=== PATIENT | female | born 1950 | race Caucasian/White ===

== ENCOUNTER → 2017-02-10 | Outpatient (CLI) | payer BC, OTHER ==
[~2017-02-10] MED LIST: ACET500C6 PO; ASPEC325 PO; CALC600T9 PO; CRS10 PO; FLV400 PO; FRRG PO; GLUC1TAB22 PO; IBUP-1428 PO; LPR25 PO; METH-1117 PO; MULT-506 PO; MULT-839 PO; OMEG10002 PO; VITAMIN B12 PO
== END | disposition home or self-care (01) ==
LOC: C.LABSPEC 17:18
PROVIDERS: ATTEND Urology
DX: N39.0 Urinary tract infection, site not specified (principal)

== ENCOUNTER 2019-06-27 09:43 | Inpatient (IN) ==
--- NOTE | 2019-06-09 15:02 | PAT Medication Instructions ---
Medication Instructions Date of Service June 09, 2019 Home Medications ascorbic acid (vitamin C) [Vitamin C] 1 g PO DAILY aspirin [Aspir-81] 81 mg PO HS calcium carbonate-vitamin D3 [Calcium 600 + D(3)] 600 cap PO DAILY cholecalciferol (vitamin D3) [Vitamin D3] 2,000 unit PO DAILY cyanocobalamin (vitamin B-12) [Vitamin B-12] 2,500 mcg SUBLINGUAL DAILY metoprolol tartrate 12.5 mg PO QAM multivitamin 1 cap PO DAILY omega 9-hfh-ije-fish oil [Fish Oil] 1 cap PO DAILY rosuvastatin [Crestor] 20 mg PO HS vit A,C and J-mwgnrx-bgrnvgol [Vision Formula (with lutein)] 1 tab PO QAM STOP taking 2 weeks before surgery (or as soon as possible if surgery is within 2 weeks) omega 6-ebc-rqe-fish oil [Fish Oil] 1 cap PO DAILY vit A,C and Z-jatbwf-aezxxblx [Vision Formula (with lutein)] 1 tab PO QAM DO NOT take the morning of surgery ascorbic acid (vitamin C) [Vitamin C] 1 g PO DAILY calcium carbonate-vitamin D3 [Calcium 600 + D(3)] 600 cap PO DAILY cholecalciferol (vitamin D3) [Vitamin D3] 2,000 unit PO DAILY cyanocobalamin (vitamin B-12) [Vitamin B-12] 2,500 mcg SUBLINGUAL DAILY multivitamin 1 cap PO DAILY Take morning of surgery With a small sip of water, OTHERWISE NOTHING TO EAT OR DRINK AFTER MIDNIGHT: metoprolol tartrate 12.5 mg PO QAM Take evening before surgery aspirin [Aspir-81] 81 mg PO HS rosuvastatin [Crestor] 20 mg PO HS Other Notes If you have any questions please call us at [phone] or [phone] or [phone] or [phone]
--- NOTE | 2019-06-12 12:26 | Anesthesiology Consultation ---
Date of Service June 12, 2019 Assessment & Plan Chart Review Chart Review: Pending: Refer to Additional Notes / Consult section (Awaiting lab results and pending cxr for final clearance, otherwise ok to proceed) History Surgery Operation Date: 06/27/19 07:00 Proposed Procedures p Left Total Knee Arthroplasty - Angel Cole MD Height/Weight Height: 5 ft 6.5 in Weight: 82.7 kg Allergies Allergy/AdvReac Type Severity Reaction Status Date / Time No Known Drug Allergies Allergy Unknown NONE Verified 05/30/19 11:45 Medications Home Medications Medication Instructions Recorded Confirmed Last Taken ascorbic acid (vitamin C) [Vitamin 1 g PO DAILY 05/30/19 05/30/19 Unknown C] aspirin [Aspir-81] 81 mg PO HS 05/30/19 05/30/19 Unknown calcium carbonate-vitamin D3 600 cap PO DAILY 05/30/19 05/30/19 Unknown [Calcium 600 + D(3)] cholecalciferol (vitamin D3) 2,000 unit PO DAILY 05/30/19 05/30/19 Unknown [Vitamin D3] cyanocobalamin (vitamin B-12) 2,500 mcg SUBLINGUAL DAILY 05/30/19 05/30/19 Unknown [Vitamin B-12] metoprolol tartrate 12.5 mg PO QAM 05/30/19 05/30/19 Unknown multivitamin 1 cap PO DAILY 05/30/19 05/30/19 Unknown omega 5-zpq-vid-fish oil [Fish Oil] 1 cap PO DAILY 05/30/19 05/30/19 Unknown rosuvastatin [Crestor] 20 mg PO HS 05/30/19 05/30/19 Unknown vit A,C and X-apatab-zqdmeaqs 1 tab PO QAM 05/30/19 05/30/19 Unknown [Vision Formula (with lutein)] Past Medical History Medical History Costochondritis HX OF History of skin cancer & RESECTED Hyperlipidemia Hypertension Left knee DJD Osteoarthritis Past Surgical History Surgical History History of cardiac cath X2 - ? DATES ([place]) - NO HX STENTS MOST RECENT 3-4 YR AGO - SOB , FATIGUE - NO FINDINGS History of colonoscopy History of mandibular surgery 1992 - NO LIMITED ROM History of tonsillectomy and adenoidectomy History of total right knee replacement Social History Smoking Status: Never smoker Do You Dip or Chew Tobacco: No Hx Alcohol Use: Yes Alcohol type: wine alcohol intake frequency: a few times a month Hx Substance Use: No substance use type: does not use Physical Exam Vital Signs Last Vital Signs Temp 36.6 C 06/12/19 12:04 Pulse 54 L 06/12/19 12:04 Resp 18 06/12/19 12:04 BP 162/80 H 06/12/19 12:04 Pulse Ox 97 06/12/19 12:04 Testing Electrocardiogram Date: 06/12/19 Findings: + SB @ (44)
--- NOTE | 2019-06-12 12:51 | XRay Report ---
XR chest Pre-admission PA/Lat CLINICAL HISTORY: Preoperative evaluation. COMPARISON STUDY: Chest radiograph January 31, 2014. FINDINGS: Lung volumes are normal. Lungs are clear. There is no pneumothorax or pleural effusion. Car diac size is at the upper limits of normal. Mediastinal contours are normal. There is no evidence for pulmonary edema. IMPRESSION: No acute cardiopulmonary findings. ACT 112: Negative or not required by law. Electronically signed by: Marcellus Ramos M.D. 06/12/2019 12:50 PM
[2019-06-12 13:13] LABS: Basophils # (auto) 0.07 K/uL (0-0.2); Basophils % (auto) 1.1 %; Eosinophils # (auto) 0.34 K/uL (0-0.5); Eosinophils % (auto) 5.5 %; Hematocrit (blood only) 37.6 % (37-47); Hemoglobin 12.2 g/dL (12.0-16.0); Immature Granulocytes # (auto) 0.01 K/uL (0.00-0.02); Immature Granulocytes % (auto) 0.2 %; Lymphocytes # (auto) 2.25 K/uL (1.2-3.4); Lymphocytes % (auto) 36.5 %; Mean Corpuscular Hemoglobin 30.8 pg (25-34); Mean Corpuscular Hgb Conc 32.4 g/dL (32-36); Mean Corpuscular Volume 94.9 fL (80-100); Mean Platelet Volume 10.5 fL (7.4-10.4); Neutrophils % (auto) 43.7 %; Platelet Count 300 K/uL (130-400); RDW Coefficient of Variation 13.7 % (11.5-14.5); RDW Standard Deviation 47.2 fL (36.4-46.3); Red Blood Count 3.96 M/uL (4.2-5.4); White Blood Count 6.17 K/uL (4.8-10.8)
[2019-06-12 13:20] LABS: BUN Creatinine Ratio 16.6 (10-20); Blood Urea Nitrogen 15 mg/dl (7-18); C Reactive Protein < 0.29 mg/dl (0-0.29); Calcium 9.5 mg/dl (8.5-10.1); Carbon Dioxide 30 mmol/L (21-32); Chloride 105 mmol/L (98-107); Creatinine Clr Calc Pharmacy 66.4 ml/min; Est GFR (African American) 76.7; Est GFR (Non-African American) 66.2; Glucose 87 mg/dl (70-99); Sodium 138 mmol/L (136-145)
[2019-06-12 13:30] LABS: INR 1.1 (0.9-1.1); Partial Thromboplastin Ratio 0.9; Partial Thromboplastin Time 25.7 Seconds (21.0-31.0); Prothrombin Time 10.8 Seconds (9.0-12.0)
--- NOTE | 2019-06-13 05:59 | Electrocardiogram Report ---
Test Reason : Blood Pressure : / mmHG Vent. Rate : 044 BPM Atrial Rate : 044 BPM P-R Int : 146 ms QRS Dur : 104 ms QT Int : 464 ms P-R-T Axes : 053 -07 041 degrees QTc Int : 396 ms Marked sinus bradycardia Abnormal ECG When compared with ECG of 31-JAN-2014 12:17, No significant change was found Confirmed by Richard Blunt ([id number]) on 06/13/2019 5:59:37 AM Referred By: Angel Cole Confirmed By:Richard Blunt
--- NOTE | 2019-06-13 10:30 | Anesthesiology Consultation ---
Date of Service June 13, 2019 Assessment & Plan (1) Encounter for pre-operative examination: Chart Review Chart Review: Acceptable Risk for Surgery Consults Requested none History Surgery Operation Date: 06/27/19 07:00 Proposed Procedures p Left Total Knee Arthroplasty - Angel Cole MD Height/Weight Height: 5 ft 6.5 in Weight: 82.7 kg Allergies Allergy/AdvReac Type Severity Reaction Status Date / Time No Known Drug Allergies Allergy Unknown NONE Verified 05/30/19 11:45 Medications Home Medications Medication Instructions Recorded Confirmed Last Taken ascorbic acid (vitamin C) [Vitamin 1 g PO DAILY 05/30/19 05/30/19 Unknown C] aspirin [Aspir-81] 81 mg PO HS 05/30/19 05/30/19 Unknown calcium carbonate-vitamin D3 600 cap PO DAILY 05/30/19 05/30/19 Unknown [Calcium 600 + D(3)] cholecalciferol (vitamin D3) 2,000 unit PO DAILY 05/30/19 05/30/19 Unknown [Vitamin D3] cyanocobalamin (vitamin B-12) 2,500 mcg SUBLINGUAL DAILY 05/30/19 05/30/19 Unknown [Vitamin B-12] metoprolol tartrate 12.5 mg PO QAM 05/30/19 05/30/19 Unknown multivitamin 1 cap PO DAILY 05/30/19 05/30/19 Unknown omega 1-zqq-auk-fish oil [Fish Oil] 1 cap PO DAILY 05/30/19 05/30/19 Unknown rosuvastatin [Crestor] 20 mg PO HS 05/30/19 05/30/19 Unknown vit A,C and Y-kbzeko-vxdjccix 1 tab PO QAM 05/30/19 05/30/19 Unknown [Vision Formula (with lutein)] Past Medical History Medical History Costochondritis HX OF History of skin cancer & RESECTED Hyperlipidemia Hypertension Left knee DJD Osteoarthritis Past Surgical History Surgical History History of cardiac cath X2 - ? DATES ([place]) - NO HX STENTS MOST RECENT 3-4 YR AGO - SOB , FATIGUE - NO FINDINGS History of colonoscopy History of mandibular surgery 1992 - NO LIMITED ROM History of tonsillectomy and adenoidectomy History of total right knee replacement Social History Smoking Status: Never smoker Do You Dip or Chew Tobacco: No Hx Alcohol Use: Yes Alcohol type: wine alcohol intake frequency: a few times a month Hx Substance Use: No substance use type: does not use Physical Exam Vital Signs Last Vital Signs Temp 36.6 C 06/12/19 12:04 Pulse 54 L 06/12/19 12:04 Resp 18 06/12/19 12:04 BP 162/80 H 06/12/19 12:04 Pulse Ox 97 06/12/19 12:04 Testing Laboratory Results 06/12/19 12:05 06/12/19 12:05 PT 10.8 Seconds (9.0-12.0) 06/12/19 12:05 INR 1.1 (0.9-1.1) 06/12/19 12:05 APTT 25.7 Seconds (21.0-31.0) 06/12/19 12:05 Blood Type A Positive 06/12/19 12:05 Antibody Screen NEGATIVE 06/12/19 12:05 Electrocardiogram Date: 06/12/19 Findings: + SB @ (44/min) Chest X-Ray Date: 06/12/19 Findings: + NAD
--- NOTE | 2019-06-23 19:11 | History and Physical Report ---
DATE OF ADMISSION: 06/27/2019 CHIEF COMPLAINT: Left knee pain and discomfort. HISTORY OF PRESENT ILLNESS: The patient is a 68-year-old female who is well known to me from previous right knee replacement we did back in 2013. Even back then she was having left knee pain, but just not as bad. She continues to be limited by left knee pain and discomfort. It has gradually gotten worse over the past several years. She has been through extensive conservative treatment including injections and medicines and she is ready to proceed with surgery. She does not want any more conservative care. Her knee is painful and unstable. It gives out intermittently. The more she walks, the more it hurts. She has nighttime pain. PAST MEDICAL HISTORY: 1. Hypertension. 2. Elevated cholesterol. PAST SURGICAL HISTORY: 1. Jaw surgery. 2. Right total knee replacement done 03/14/2014. ALLERGIES: None. CURRENT MEDICINES: 1. Crestor 20 mg a day. 2. Metoprolol 25 mg. 3. Calcium with D. 4. Vitamin B12. 5. Fish oil. 6. Vision formula. 7. Baby aspirin. 8. Vitamin C. 9. Vitamin D3. 10. Multivitamin. SOCIAL HISTORY: 68-year-old female. She lives in [place]. Does not smoke. FAMILY HISTORY: Noncontributory. REVIEW OF HISTORY: Negative for diabetes, neurologic problems, vascular problems or bleeding disorders. Denies any chest pain or shortness of breath. No signs of DVT or PE. No known bleeding problems. PHYSICAL EXAMINATION: GENERAL: Shows a pleasant, middle-aged female, looks to be in good health. HEENT: Benign. NECK: Supple with no lymphadenopathy. LUNGS: Clear to auscultation. HEART: Has regular rate and rhythm. ABDOMEN: Soft, nontender, nondistended. EXTREMITIES: Grossly neurovascularly intact except as follows: Examination of left knee reveals patient walks with a slightly antalgic gait. She has valgus alignment to her knee which is worse with weightbearing. She had a small knee effusion. She is tender over the lateral joint line. Range of motion is 5 degrees short of full extension to 120 degrees of flexion. No instability. No pain with hip motion. Examination of the right knee reveals a well-healed incision. No swelling. She has anatomic alignment. Range of motion is 0-125. Good straight leg raise. X-RAYS: X-rays of the left knee were reviewed. Shows advanced left knee lateral compartment DJD. She has complete loss of her lateral joint space. She has subchondral sclerosis and osteophytes in the lateral compartment. She has diffuse osteopenia elsewhere. The right knee looks to be well fixed in good position without signs of wear. ASSESSMENT: 68-year-old white female 5+ years out from right knee replacement with left knee degenerative joint disease. She has failed conservative treatment and would like to proceed with left knee replacement. PLAN: We will take her to the operating room and do a left total knee replacement. The risks and benefits of this procedure were explained to the patient including but not limited to DVT, PE, , infection, neurological injury, vascular injury, bleeding problem, pain, limited range of motion, stiffness, failure to relieve symptoms, incomplete relief of symptoms, need for further surgery in future, fracture, leg length inequality, nerve palsy, etc. The patient understands and desires to proceed. Informed consent was obtained. We did talk to her about taking her metoprolol the morning of surgery. She will be able to be discharged to home with some home health.
[~2019-06-27 09:43] MED LIST changes: -ACET500C6 PO; +ACETAMINOPHEN 500 MG TAB PO SCH; -ASPEC325 PO; +BUPIVACAINE LIPOSOME/PF 266 MG, BUPIVACAINE/EPINEPHRINE 50 ML, SODIUM CHLORIDE 0.9% 30 ... INFIL SCH; -CALC600T9 PO; +CEFAZOLIN 2000MG 2,000 MG/15 ML SYR IV SCH; -CRS10 PO; +FAMOTIDINE 20 MG TAB PO SCH; -FLV400 PO; -FRRG PO; +GABAPENTIN 300 MG CAP PO SCH; -GLUC1TAB22 PO; -IBUP-1428 PO; -LPR25 PO; +LR 500ML BOLUS IV SCH; +LR 60ML/HR IV SCH; -METH-1117 PO; +METOCLOPRAMIDE HCL 10 MG TABLET PO SCH; -MULT-506 PO; -MULT-839 PO; -OMEG10002 PO; +TRANEXAMIC ACID 1,000 MG **IV Intra-op IV SCH; -VITAMIN B12 PO
--- NOTE | 2019-06-27 10:55 | History & Physical Bridge Note ---
Date of Service June 27, 2019 History & Physical Bridge Note I have examined the patient, reviewed the History & Physical and in the interval since the performance of the History & Physical I have noted the following changes of clinical significance: no changes noted
[2019-06-27] MEDS ORDERED: BUPIVACAINE 0.5 % 5 MG/1 ML PF 10ML VIAL ONE (11:01)
[2019-06-27] MEDS ORDERED: fentaNYL citrate 100 MCG/2 ML VIAL ONE (11:39)
[2019-06-27] MEDS ORDERED: MIDAZOLAM HCL 1 MG/ML 2ML VIAL ONE ×2 (11:39→14:51)
[2019-06-27] MEDS ORDERED: fentaNYL citrate 100 MCG/2 ML VIAL IV PRN (11:43)
[2019-06-27] MEDS ORDERED: ONDANSETRON INJ 2 MG/ML 2 ML VIAL IV PRN ×2 (11:43→16:36)
[2019-06-27] MEDS ORDERED: ePHEDrine sulfate 50 MG/ML AMP IV PRN (11:43)
[2019-06-27] MEDS ORDERED: ATROPINE SULFATE 0.1 MG/ML 10ML SYR IV PRN (11:43)
[2019-06-27] MEDS ORDERED: BUPIVACAINE LIPOSOME 1.3% 266 MG/20 ML VIAL ONE (13:17)
[2019-06-27] MEDS ORDERED: BUPIVACAINE/EPINEPHRINE 0.25% 1:200,000 30 ML VIAL ONE (13:17)
[2019-06-27] MEDS ORDERED: BACITRACIN INJ 50,000 UNIT VIAL ONE (13:17)
[2019-06-27] MEDS ORDERED: SODIUM CHLORIDE 0.9% PF 50 ML VIAL ONE (13:17)
[2019-06-27] MEDS ORDERED: PROPOFOL IV EMULSION 10 MG/ML 20 ML VIAL IV ONE ×2 (13:46→13:55)
[2019-06-27] MEDS ORDERED: GLYCOPYRROLATE 0.2 MG/ML VIAL ONE (14:12)
[2019-06-27] MEDS ORDERED: ONDANSETRON INJ 2 MG/ML 2 ML VIAL ONE (14:51)
--- NOTE | 2019-06-27 15:23 | Post Operative Brief Note ---
PG Immediate Post Op with CF Date of Surgery June 27, 2019 Pre & Post Diagnosis Operation Date: 06/27/19 12:30 Pre-Op Diagnosis: Left Knee Degenerative Joint Disease with Knee Pain Post-Op Diagnosis: Left Knee Degenerative Joint Disease with Knee Pain I identified the patient and participated in the time-out.: Yes Procedure Operation Date: 06/27/19 12:30 Actual Procedures p Left Total Knee Replacement(Left) - Angel Cole MD Surgeon Angel Cole MD Credentialer Xochitl, [facility] Estimated Blood Loss 50 Findings Consistent with Post-Op Diagnosis Fluids 1500 cc Specimens Specimen Description: Permanent: A. Left Knee Bone and Tissue Drains Rangel Catheter Anesthesia Type Spinal MAC Complications none Disposition Accompanied Patient To Recovery: No Disposition: Recovery Room
--- NOTE | 2019-06-27 16:02 | XRay Report ---
XR knee LT 1 or 2V routine HISTORY: 68 years-old Female Surgical Post Op left knee total joint arthroplasty COMPARISON: Knee radiographs 05/11/2019 TECHNIQUE: 2 views of the left knee FINDINGS: Left knee total joint arthroplasty and patella resurfacing. Satisfactory alignment without acute frac ture or retained foreign body. Anterior midline skin rosita are noted along with expected postsurgic al soft tissue swelling and deep tissue air with surgical drainage catheter. IMPRESSION: Left knee total joint arthroplasty with expected postoperative findings. ACT 112: Negative or not required by law. The above report was generated using voice recognition software. It may contain grammatical, syntax o r spelling errors. Electronically signed by: Nico Blackwell M.D. 06/27/2019 4:01 PM
--- NOTE | 2019-06-27 16:08 | Anesthesiology Progress Note ---
Date of Service June 27, 2019 Anesthesia Post Procedure Vital Signs Vital Signs: Temp Pulse Pulse Resp BP BP Pulse Ox 06/27/19 16:00 36.3 C L 60 20 125/72 95 06/27/19 15:50 63 14 125/69 98 06/27/19 15:40 60 15 117/57 L 99 06/27/19 15:30 36.3 C L 76 15 111/59 L 96 06/27/19 10:19 36.8 C 64 20 170/83 H 96 Pain Intensity Left Knee: Pain Intensity: 0 Transfer of Care Handoff Completed per policy Notes Mental Status: alert / awake / arousable and participated in evaluation Patient Amnestic to Procedure: Yes Nausea / Vomiting: adequately controlled Pain: adequately controlled Airway Patency, RR, SpO2: stable & adequate BP & HR: stable & adequate Hydration State: stable & adequate Neuraxial Anesthesia: was administered and sensory block is resolving Anesthetic Complications: no major complications apparent
[2019-06-27] MEDS ORDERED: HYDROmorphone INJ 0.5 MG/0.5 ML SYR IV PRN (16:36)
[2019-06-27] MEDS ORDERED: bisacodyL 10 MG SUPP PR PRN (16:36)
[2019-06-27] MEDS ORDERED: METOCLOPRAMIDE HCL INJ 5 MG/ML 2 ML VIAL IV PRN (16:36)
[2019-06-27] MEDS ORDERED: ALUMINUM/MAGNESIUM SUSP 30 ML UDC PO PRN (16:36)
[2019-06-27] MEDS ORDERED: NALOXONE HCL 0.4 MG/1 ML VIAL/CARP IV PRN (16:36)
[2019-06-27] MEDS ORDERED: TRAMADOL HCL 50 MG TABLET PO PRN (16:36)
[2019-06-27] MEDS ORDERED: MAGNESIUM HYDROXIDE SUSP 30 ML UDC PO PRN (16:36)
[2019-06-27] MEDS: SODIUM CHLORIDE 0.9% 1000ML 1,000 ML IV SCH (16:59)
--- NOTE | 2019-06-27 17:27 | Operative Report ---
Post Operative Report Pre & Post Diagnosis Operation Date: 06/27/19 12:30 Pre-Op Diagnosis: Left Knee Degenerative Joint Disease with Knee Pain Post-Op Diagnosis: Left Knee Degenerative Joint Disease with Knee Pain I identified the patient and participated in the time-out.: Yes Procedure Operation Date: 06/27/19 12:30 Actual Procedures p Left Total Knee Replacement(Left) - Angel Cole MD Surgeon Angel Cole MD Certified Nursing Assistant Xochitl, PAC Estimated Blood Loss 50 Findings Consistent with Post-Op Diagnosis Operative findings revealed advanced left knee DJD. Most severe changes were in the lateral compartment. She had extensive grade 4 changes to the lateral femoral condyle lateral tibial plateau with eburnation changes particular the posterior lateral tibial plateau. She had some focal grade 4 changes medially as well as in the patellofemoral compartment. She had a valgus deformity to her knee. She had a moderate-sized joint effusion. Fluids 1500 cc Specimens Left knee sent for pathology. Anesthesia Type Spinal MAC Complications none Disposition Accompanied Patient To Recovery: No Disposition: Recovery Room Indications Patient is a 68-year-old female is had a long history of bilateral knee pain discomfort. She is been through extensive conservative treatment the past. She had a right knee replaced 6 years ago. Even back then she was having pain and discomfort left knee. She is failed conservative treatment over the years and her pain is become more debilitating. She elected proceed with left total knee arthroplasty. Description of Procedure Operative implants consisted of: 1. Biomet Vanguard size 62.5 left posterior stabilized femoral component. 2. Biomet size 67 tibial tray. 3. 10 mm Po stabilized polyethylene insert. 4. 28 x 8 all poly-patella. Patient was taken to the operating room identified and placed on the operating table supine position protectors were properly padded. IV antibiotics were provided by anesthesia team. A spinal anesthetic and abductor canal block had been provided holding area. Rangel catheter was placed in sterile fashion. Left factor was then placed in the left lower extremity was then prepped and draped in the usual sterile fashion. The left leg was elevated exsanguinated with use of an Esmarch and a tourniquet was placed at 300 mmHg. An anterior posterior left knee was then performed the longitudinal incision centered to the patella. Sharp dissection was cut through subcutaneous tissue down below the extensor mechanism. A medial parapatellar arthrotomy incision was made. Some subperiosteal dissection was carried out medially. The fat pad was resected from each patella tendon. Lateral patellofemoral ligament was released. Patella was subluxated laterally knee was flexed. The osteophytes were taken off the distal femur. The ACL and PCL were then released in the distal femur the tibia subluxated anteriorly. The external tibial alignment jig was then placed in the interface the tibia and adjusted 14 mm medially. Proximal tibial cut was made to move out 3 to 4 mm of bone from the medial side. This did cut below the eburnated area of the lateral tibial plateau. The tibia sized to a size 67. Attention drawn the femur. The distal femur was entered with a sharp drill. The intramedullary guide was placed. Intramedullary canal was suction. A left 5 degree valgus cutting guide was placed in the distal femoral cut was made. The knee was brought out in extension. I did do a little pie crusting of the IT band medial and order to equalize the extension gap. Great care was taken to protect the peroneal nerve at all times. The knee was flexed. The femur was then sized to a size 62.5. The AP cutting block was pinned parallel to the epicondylar axis which was 6 degrees of external rotation. The anterior cut, anterior chamfer, posterior cut, posterior chamfer cuts were made. Box cutting guide was placed and adjusted a slight lateral box cut was made. The knee was flexed. The remnants of the medial lateral menisci were excised. The osteophytes were taken off the posterior aspect of the femur. I did release the popliteus in order to equalize the flexion gap. The trial femoral component was placed but the tibial tray was pinned in maximum external rotation the drill and stem punch we used to create defect in proximal tip for the tibial tray. Knee was then trialed the 10 mm insert fit most appropriately. Attention drawn the patella. The patella was cleaned of all soft tissues. Patella thickness measured 18 mm in thickness was cut down to 12. Was sized to a 28 patella. Locals with growth the 28 patella. The lateral osteophyte is moved. Patella button was placed. Knee was taken through range of motion patella tracked nicely with no thumbs test. Attention drawn to place the permanent components. All trial components removed. A bone plug was placed in the disc femur limit blood loss put a double batch Pal[place]os G cement was mixed. Biomet Vanguard size 62.5 left posterior by femoral component, size 67 tibial tray, 10 mm posterior box polyethylene insert, and a 28 x 8 all poly-patella were then cemented in place. Knee was brought into full extension total cement hardened. Final cement check was then performed. The pericapsular tissues were injected with total 100 cc of combination of 20 cc of Exparel, 30 cc normal saline, 50 cc of quarter percent Marcaine with epinephrine. Patient did receive 1 g of tranexamic acid. The tendon was then let down for final tourniquet time of 56 minutes. Hemostasis assured use electrocautery. The wounds once again irrigated. The extensor mechanism then closed with combination 1 PDS suture #1 Vicryl suture in [id number] fashion. The extensor mechanism is checked found to be intact the subcutaneous tissue then closed with 2 Dexon suture in a buried interrupted fashion skin was closed skin rosita. I was then cleaned and dried and sterile dressing composed of Xeroform, 4 x 4's, sterile cast padding, Mauro bandage were applied. Patient then transferred to the recovery room in stable condition. Patient tolerated the procedure well and there were no complications. I attest to the content of the Intraoperative Record and any orders documented therein. Any exceptions are noted below.
[2019-06-27] MEDS: FERROUS GLUCONATE 324 MG TAB PO SCH (17:49)
[2019-06-27] MEDS: ASCORBIC ACID 500 MG TAB PO SCH (17:49)
[2019-06-27] MEDS: KETOROLAC TROMETHAMINE 15 MG/ML VIAL IV SCH ×2 (17:49→23:30)
[2019-06-27] MEDS: ASPIRIN 81 MG ECTAB PO SCH (21:16)
[2019-06-27] MEDS: ACETAMINOPHEN 500 MG TAB PO SCH (21:16)
[2019-06-27] MEDS: ROSUVASTATIN CALCIUM 20 MG TAB PO SCH (21:16)
[2019-06-27] MEDS: DOCUSATE SODIUM 100 MG CAP PO SCH (21:16)
[2019-06-27] MEDS: SENNA 8.6 MG TAB PO SCH (21:16)
[2019-06-27] MEDS ORDERED: TRANEXAMIC ACID / 0.7% NACL 1,000 MG/100 ML BAG IV SCH (21:30)
[2019-06-27] MEDS: CEFAZOLIN 2000MG 2,000 MG/15 ML SYR IV SCH (21:51)
[2019-06-28] MEDS: SODIUM CHLORIDE 0.9% 1000ML 1,000 ML IV SCH (03:36)
[2019-06-28 05:14] LABS: Hematocrit (blood only) 33.1 % (37-47); Hemoglobin 10.7 g/dL (12.0-16.0); Mean Corpuscular Hemoglobin 30.6 pg (25-34); Mean Corpuscular Hgb Conc 32.3 g/dL (32-36); Mean Corpuscular Volume 94.6 fL (80-100); Mean Platelet Volume 10.2 fL (7.4-10.4); Platelet Count 221 K/uL (130-400); RDW Coefficient of Variation 14.1 % (11.5-14.5); RDW Standard Deviation 48.6 fL (36.4-46.3); White Blood Count 7.14 K/uL (4.8-10.8)
[2019-06-28 05:36] LABS: BUN Creatinine Ratio 14.5 (10-20); Calcium 8.8 mg/dl (8.5-10.1); Creatinine Clr Calc Pharmacy 67.6 ml/min; Est GFR (African American) 74.7; Est GFR (Non-African American) 64.4; Potassium 4.7 mmol/L (3.5-5.1)
[2019-06-28] MEDS: ACETAMINOPHEN 500 MG TAB PO SCH ×3 (05:57→21:27)
[2019-06-28] MEDS: CEFAZOLIN 2000MG 2,000 MG/15 ML SYR IV SCH (05:57)
[2019-06-28] MEDS: KETOROLAC TROMETHAMINE 15 MG/ML VIAL IV SCH ×3 (05:57→18:01)
[2019-06-28] MEDS: MULTIVITAMIN TAB PO SCH (08:39)
[2019-06-28] MEDS: METOPROLOL TARTRATE 25 MG TAB PO SCH (08:39)
[2019-06-28] MEDS: CYANOCOBALAMIN (VITAMIN B-12) 2,500 MCG TAB.SUBL SL SCH (08:41)
[2019-06-28] MEDS: CHOLECALCIFEROL 1,000 UNITS 25 MCG TAB PO SCH (08:41)
[2019-06-28] MEDS: ASCORBIC ACID 500 MG TAB PO SCH ×2 (08:41→16:48)
[2019-06-28] MEDS: OMEGA-3 (PURIFIED FISH OIL) 1 GM CAP PO SCH (08:41)
[2019-06-28] MEDS: FERROUS GLUCONATE 324 MG TAB PO SCH ×2 (08:42→16:48)
[2019-06-28] MEDS: ASPIRIN 81 MG ECTAB PO SCH ×2 (08:42→20:15)
[2019-06-28] MEDS: DOCUSATE SODIUM 100 MG CAP PO SCH ×2 (08:42→20:15)
[2019-06-28] MEDS: CALCIUM 600MG + VIT D 400 IU TAB PO SCH (08:42)
[2019-06-28] MEDS ORDERED: NON-FORMULARY MEDICATION (Ascorbic Acid (Vitamin C) [Vitamin C] 1 GM) PO SCH (09:00)
[2019-06-28] MEDS ORDERED: [UNRECOGNIZED DRUG - MIXTURE] PO SCH (09:00)
[2019-06-28] MEDS ORDERED: MULTIVITAMIN TAB PO SCH (09:00)
--- NOTE | 2019-06-28 12:19 | Progress Note ---
DATE: 06/28/2019 SUBJECTIVE: A 68-year-old white female postop day 1 from left knee replacement. She is doing pretty well. Really not having much pain. Therapy went well. No chest pain or shortness of breath. Not feeling dizzy or lightheaded. OBJECTIVE: VITAL SIGNS: Temperature 36.7. Vital signs stable. GENERAL: Shows a pleasant, middle-aged female. She is sitting up in bed, looks pretty comfortable. EXTREMITIES: Examination of the left leg reveals the leg to be well aligned. Dressing is clean, dry and intact. She can dorsiflex and plantarflex her foot appropriately. She is neurologically intact. LABORATORY DATA: Hemoglobin 10.7. Hematocrit 33.1. Electrolytes are stable. ASSESSMENT: A 68-year-old white female postoperative day 1 from left knee replacement, doing pretty well. Pain has been very well controlled. She is mildly anemic, but asymptomatic. She is neurologically intact. PLAN: 1. DVT prophylaxis including thigh-high TEDs, SCDs, and aspirin twice a day. 2. PT/OT. She can weightbear as tolerated. Left lower extremity protocol. 3. Pain control, doing pretty well with current pain regimen. We are going to use ibuprofen upon discharge. She is doing okay with the tramadol. 4. Disposition: Plan to discharge her home with some home health once adequately recovered and medically stable.
[2019-06-28] MEDS: ROSUVASTATIN CALCIUM 20 MG TAB PO SCH (20:15)
[2019-06-28] MEDS: SENNA 8.6 MG TAB PO SCH (20:15)
[2019-06-29] MEDS: KETOROLAC TROMETHAMINE 15 MG/ML VIAL IV SCH ×3 (00:02→11:54)
[2019-06-29] MEDS: ACETAMINOPHEN 500 MG TAB PO SCH (05:17)
[2019-06-29] MEDS: FERROUS GLUCONATE 324 MG TAB PO SCH (07:48)
[2019-06-29] MEDS: OMEGA-3 (PURIFIED FISH OIL) 1 GM CAP PO SCH (07:48)
[2019-06-29] MEDS: METOPROLOL TARTRATE 25 MG TAB PO SCH (07:48)
[2019-06-29] MEDS: CALCIUM 600MG + VIT D 400 IU TAB PO SCH (07:48)
[2019-06-29] MEDS: DOCUSATE SODIUM 100 MG CAP PO SCH (07:48)
--- NOTE | 2019-06-29 07:49 | Progress Note ---
DATE: 06/29/2019 SUBJECTIVE: A 68-year-old white female postop day #2 from a left knee replacement. She is doing pretty well. Therapy has gone well. Pain has been controlled. No chest pain or shortness of breath. Not feeling dizzy or lightheaded. OBJECTIVE: VITAL SIGNS: Temperature 36.7. Vital signs stable. GENERAL: Shows a pleasant, middle-aged female. She is lying in bed, looks comfortable. EXTREMITIES: Examination of the left leg reveals the dressing to be in place. There is a little bit of bloody drainage inferiorly. Calves are soft and supple. Some moderate swelling. She is neurologically intact. ASSESSMENT: A 68-year-old white female postop day #2 from left knee replacement, doing pretty well. Pain is controlled. PLAN: 1. DVT prophylaxis including thigh-high TEDs, SCDs, and aspirin twice a day. 2. PT/OT. Weight bear as tolerated. Left total knee protocol. 3. Pain control, doing pretty well with current pain regimen. 4. Disposition: Plan to discharge to home with some home health later today.
[2019-06-29] MEDS: CHOLECALCIFEROL 1,000 UNITS 25 MCG TAB PO SCH (07:50)
[2019-06-29] MEDS: ASCORBIC ACID 500 MG TAB PO SCH (07:50)
[2019-06-29] MEDS: MULTIVITAMIN TAB PO SCH (07:50)
[2019-06-29] MEDS: CYANOCOBALAMIN (VITAMIN B-12) 2,500 MCG TAB.SUBL SL SCH (07:50)
[2019-06-29] MEDS: ASPIRIN 81 MG ECTAB PO SCH (07:50)
--- NOTE | 2019-07-03 16:38 | Discharge Summary ---
ADMITTING PHYSICIAN AND SURGEON: Dr. Angel Cole. ADMITTING DIAGNOSIS: Left knee degenerative joint disease. SURGERY PERFORMED: Left total knee arthroplasty. SECONDARY DIAGNOSES: Hypertension, elevated cholesterol. CONSULTS: None obtained. HISTORY AND PHYSICAL EXAMINATION: Well documented in the patient's chart. HOSPITAL COURSE: The patient was admitted on 06/27/2019 underwent total knee arthroplasty, tolerated the procedure well. There were no complications. She was transferred to the PACU postoperatively and later to the orthopedic floor for further care. She was given Ancef for antibiotic prophylaxis, MATTHEW stockings, SCDs and aspirin for DVT prophylaxis. Hemoglobin, hematocrit and vital signs were monitored during her hospital stay and remained stable. She did not require any blood transfusions. There were no complications. By postoperative day 2, she was tolerating a regular diet, pain was controlled with oral pain medicine. She was participating in physical therapy. Postop day 2, she was discharged home, set up with home health services. She was given printed discharge instructions as well as new prescriptions for extra strength Tylenol, aspirin, ibuprofen and tramadol. Continue her home medicines. Continue physical therapy, weightbearing as tolerated, MATTHEW stockings. Follow up approximately 2 weeks postop or sooner if there are any problems or concerns.
== END 2019-06-29 13:13 | disposition home health service (06) | DRG 470 ==
LOC: ASU 09:43 → 3E 15:28